=== PATIENT | male | born 1995 | race Caucasian/White ===

== ENCOUNTER 2018-06-02 16:01 | Emergency (ER) | payer OTHER, MEDICAID ==
[2018-06-02 16:08] VITALS: BP 118/81
--- NOTE | 2018-06-02 17:03 | EDPHY ---
H & P Stated Complaint: LAC TO R 3RD DIGIT Source: Patient Exam Limitations: No limitations - Personal History Tetanus Vaccine Date: 2010 - Medical/Surgical History Hx Asthma: No Hx Chronic Respiratory Disease: No Hx Diabetes: No Hx Cardiac Disease: No Hx Renal Disease: No Hx Cirrhosis: No Hx Alcoholism: No Hx HIV/AIDS: No Hx Splenectomy or Spleen Trauma: No Other PMH: IV drug use, - Social History Smoking Status: Heavy smoker Time Seen by Provider: 06/02/18 16:22 HPI/ROS: HPI: This is a 23-year-old male who presents with Chief Complaint: Laceration to right 3rd digit Location: Right middle finger Quality: Laceration Duration: 1 hr prior to arrival Signs and Symptoms: + bleeding, no radiation, no numbness, no weakness, no tingling, no incontinence, no decreased range of motion, no swelling, no pain, no fever Timing: Acute Severity: [id number] Context: 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 He then tried to pick it up and cut his right middle finger. He reports that it started to bleed"a lot." Reports tetanus is current. He wrapped in a towel and his employer sent him to the emergency room for further care. Denies paresthesias, weakness, decreased range of motion. Modifying Factors: Direct pressure Comment: ROS: A comprehensive 10 system review of systems is otherwise negative aside from elements mentioned in the history of present illness. MEDICAL/SURGICAL/SOCIAL HISTORY: Medical history: IV drug user Surgical history: Denies Social history: Employed CONSTITUTIONAL: Polite and cooperative young adult white male, awake and alert , no obvious distress HEENT: Atraumatic and normocephalic EXTREMITIES: 2/2 pulses, strength 5/5, 1 cm, simple, deep, linear laceration on the pad of right middle finger. DIP/PIP/MCP flexion/extension intact with good light touch sensation.no deformities, no clubbing, no cyanosis or edema. NEUROLOGICAL: no focal neuro deficits. GCS 15. SKIN: Warm and dry, no erythema. no rash. Good capillary refill. CONSTITUTIONAL: awake and alert, no obvious distress HEENT: Atraumatic and normocephalic. NECK: supple, no midline tenderness, flexion 45 degrees, extension 45 degrees, right and left lateral flexion 45 degrees. No meningismus. Cardiovascular: Normal S1/S2, regular rate, regular rhythm, without murmur rub or gallop. PULMONARY/CHEST: Symmetrical and nontender. no crepitus. Clear to auscultation bilaterally. Good air movement. No accessory muscle usage. ABDOMEN: Soft, nondistended, nontender, no ecchymosis. PELVIC: no pain with rocking; bilateral hips flexion 125 degrees, extension 30 degrees, with no pain internal rotation and no pain external rotation. BACK: No midline tenderness, no paraspinous spasm, deep tendon reflexes 2/2, no pain with straight leg raise, No foot drop. Achilles reflexes are equal bilaterally. Able to walk on heels and toes without difficulty. EXTREMITIES: 2/2 pulses, strength 5/5, no deformities, no clubbing, no cyanosis or edema. NEUROLOGICAL: no focal neuro deficits. GCS 15. Light touch sensation intact. SKIN: Warm and dry, no erythema. no rash. Good capillary refill. (Meghan Barton) Constitutional: Initial Vital Signs Temperature (C) 36.8 C 06/02/18 16:05 Heart Rate 77 06/02/18 16:05 Respiratory Rate 17 06/02/18 16:05 Blood Pressure 118/81 H 06/02/18 16:05 O2 Sat (%) 98 06/02/18 16:05 O2 Delivery Mode Room Air Allergies/Adverse Reactions: No Known Allergies Allergy (Verified 06/02/18 16:03) Home Medications: Medication Instructions Recorded NK [No Known Home Meds] 12/02/15 Medical Decision Making Procedures: Procedure: Laceration repair. Verbal consent was obtained from the patient. The 1 cm, simple, linear, deep laceration on the finger pad of the right middle finger was anesthetized in the usual fashion using 2 mL of 1% lidocaine without epinephrine The wound was irrigated, draped and explored to its base with a gloved finger. There were no deep structures involved. No tendon injury was identified. The wound was repaired with #3, 5 0 Prolene. Good hemostasis was achieved and patient tolerated procedure well. Clean sterile dressing applied. The procedure was performed by myself. (Meghan Barton) ED Course/Re-evaluation: Tetanus is up-to-date Local anesthesia provided and copiously irrigated Repaired with sutures and clean sterile dressing applied Verbal and written wound care instructions provided No signs of neurovascular compromise/tenting of skin/compartment syndrome/ extremities and joints examined above and below area of concern and are neurovascularly intact. This patient was seen under the supervision of my secondary supervising physician. I evaluated care for this patient independently. Discussed this patient with Dr. Dyer. (Meghan Barton) The patient was evaluated and managed by the physician assistant superintendent. I have reviewed this chart and I agree with the findings and plan of care as documented , as indicated by my signature. I am the secondary supervising physician. ( Yessica Dyer) Differential Diagnosis: Differential diagnosis includes but is not limited to laceration, nerve injury, tendon injury, nail involvement. (Meghan Barton) Departure - Departure Disposition: Home, Routine, Self-Care Clinical Impression: Laceration of right middle finger w/o foreign body w/o damage to nail Condition: Good Instructions: Care For Your Stitches (ED), Finger Laceration (ED) Additional Instructions: Keep the dressing dry and in place for 48 hours. After 48 hours, you may remove the dressing; wash the site daily with mild soap and water; then pat dry. Take Tylenol 650 mg every 4 hours and/or Ibuprofen 600 mg every 8 hours with food as needed for pain. Wound Care Follow-Up: Removal of sutures in [ 7-10 ] days. Suture removal is complimentary in uncomplicated cases. Infection or abnormal findings would require reevaluation by the MD. In that case, you may be billed. Referrals: [facility],. [Clinic] - As per Instructions Stand Alone Forms: Work Limited Duty
== END 2018-06-02 17:09 | disposition home or self-care (01) ==
PROC: 0HQFXZZ Repair Right Hand Skin, External Approach (ICD-10-PCS; principal; 2018-06-02)
DX: S61.212A Laceration without foreign body of right middle finger without damage to nail, initial encounter (principal); W26.9XXA Contact with unspecified sharp object(s), initial encounter; Y92.9 Unspecified place or not applicable; Y99.0 Civilian activity done for income or pay; Y93.G1 Activity, food preparation and clean up